=== PATIENT | female | born 1995 | race Caucasian/White ===

== ENCOUNTER 2016-11-17 02:16 | Emergency (ER) | payer OTHER ==
[2016-11-17 02:23] VITALS: TEMP 97.5
[2016-11-17] MEDS ORDERED: ONDANSETRON 4 MG/2 ML VIAL IVP ONE (02:32)
[2016-11-17] MEDS ORDERED: NS 1,000 ML IV ONE (02:32)
--- NOTE | 2016-11-17 02:34 | EDPHY ---
H & P Stated Complaint: ETOH and feels "bad", insulin pump DM Time Seen by Provider: 11/17/16 02:29 HPI/ROS: HPI The patient presents with nausea and vomiting for the last 1 hour. She was drinking heavily with friends tonight, 5-6 shots of alcohol. She then became sick with vomiting which was nonbloody and nonbilious. She denies any abdominal pain but says she generally feels unwell. Her last glucose check was at 9:30 a.m. and it was normal. She last ate at about 7:00 p.m... REVIEW OF SYSTEMS Constitutional: No fever, no chills. Eyes: No discharge. ENT: No sore throat. Cardiovascular: No chest pain, no palpitations. Respiratory: No cough, no shortness of breath. Gastrointestinal: See HPI Genitourinary: No hematuria. Musculoskeletal: No back pain. Skin: No rashes. Neurological: No headache. PMHx: Type 1 diabetes with insulin pump Soc Hx: College student, alcohol use PHYSICAL General Appearance: Alert, no distress Eyes: Pupils equal and round no pallor or injection ENT, Mouth: Mucous membranes moist Respiratory: There are no retractions, lungs are clear to auscultation Cardiovascular: Regular rate and rhythm Gastrointestinal: Abdomen is soft and non-tender, no masses, bowel sounds normal Neurological: A&O, moves all extremities Skin: Warm and dry, no rashes Musculoskeletal: Neck is supple non tender Extremities: symmetrical, full range of motion Psychiatric: Patient is oriented X 3, there is no agitation Source: Patient, Other Exam Limitations: No limitations - Personal History LMP (Females 10-55): 8-14 Days Ago Current Tetanus/Diphtheria Vaccine: Yes Current Tetanus Diphtheria and Acellular Pertussis (TDAP): Yes Tetanus Vaccine Date: 2015 - Medical/Surgical History Hx Asthma: No Hx Chronic Respiratory Disease: No Hx Diabetes: Yes Hx Cardiac Disease: No Hx Renal Disease: No Hx Cirrhosis: No Hx Alcoholism: No Hx HIV/AIDS: No Hx Splenectomy or Spleen Trauma: No Other PMH: DM type I Constitutional: Initial Vital Signs Temperature (C) 36.4 C 11/17/16 02:19 Heart Rate 83 11/17/16 02:19 Respiratory Rate 14 11/17/16 02:19 Blood Pressure 109/62 11/17/16 02:19 O2 Sat (%) 96 11/17/16 02:19 O2 Delivery Mode Room Air Allergies/Adverse Reactions: No Known Allergies Allergy (Unverified 11/17/16 02:19) Home Medications: Medication Instructions Recorded NOVOLOG MIX 70-30 CARTRIDGE 11/17/16 Medical Decision Making ED Course/Re-evaluation: The patient was given a L of IV fluids. Her glucose was checked and was 250. She did not have an anion gap, making DKA unlikely. She was also given Zofran. She was able to tolerate fluids by mouth and was discharged home in good condition. Differential Diagnosis: This is a 21-year-old female with type 1 diabetes, with insulin pump who presents with vomiting after a night of drinking. Differential diagnosis includes alcohol intoxication, DKA, hyperglycemia, hypoglycemia. - Data Points Laboratory Results: Laboratory Results 11/17/16 02:30 11/17/16 02:30 11/17/16 11/17/16 02:30 02:29 WBC 6.97 10^3/uL (3.80-9.50) RBC 4.57 10^6/uL (4.18-5.33) Hgb 14.0 g/dL (12.6-16.3) POC Hgb 14.3 gm/dL (12.3-15.9) Hct 40.9 % (38.0-47.0) POC Hct 42 % (35.5-47.5) MCV 89.5 fL (81.5-99.8) MCH 30.6 pg (27.9-34.1) MCHC 34.2 g/dL (32.4-36.7) RDW 12.8 % (11.5-15.2) Plt Count 333 10^3/uL (150-400) MPV 9.0 fL (8.7-11.7) Neut % (Auto) 75.5 H % (39.3-74.2) Lymph % (Auto) 19.4 % (15.0-45.0) [place] % (Auto) 4.0 L % (4.5-13.0) Eos % (Auto) 0.3 L % (0.6-7.6) Baso % (Auto) 0.4 % (0.3-1.7) Nucleat RBC Rel Count 0.0 % (0.0-0.2) Absolute Neuts (auto) 5.26 10^3/uL (1.70-6.50) Absolute Lymphs (auto) 1.35 10^3/uL (1.00-3.00) Absolute Monos (auto) 0.28 L 10^3/uL (0.30-0.80) Absolute Eos (auto) 0.02 L 10^3/uL (0.03-0.40) Absolute Basos (auto) 0.03 10^3/uL (0.02-0.10) Absolute Nucleated RBC 0.00 10^3/uL (0-0.01) Immature Gran % 0.4 % (0.0-1.1) Immature Gran # 0.03 10^3/uL (0.00-0.10) POC Sodium 139 mEq/L (134-144) Sodium 141 mEq/L (134-144) POC Potassium 3.8 mEq/L (3.3-5.0) Potassium 4.3 mEq/L (3.5-5.2) POC Chloride 102 mEq/L (96-108) Chloride 106 mEq/L (97-110) Carbon Dioxide 21 L mEq/l (22-31) Anion Gap 14 mEq/L (8-16) POC BUN 11 mg/dL (7-23) BUN 12 mg/dL (7-23) Creatinine 0.6 mg/dL (0.6-1.0) POC Creatinine 0.8 mg/dL (0.6-1.2) Estimated GFR > 60 Glucose 250 H mg/dL (70-100) POC Glucose 252 H mg/dL (70-100) Calcium 8.6 mg/dL (8.5-10.4) Total Bilirubin 0.4 mg/dL (0.1-1.4) AST 20 IU/L (14-46) ALT 30 IU/L (9-52) Alkaline Phosphatase 82 IU/L (38-126) Total Protein 6.8 g/dL (6.3-8.2) Albumin 3.7 g/dL (3.5-5.0) Ethyl Alcohol 211 H mg/dL (0-10) Medications Given: Discontinued Medications Sodium Chloride (Ns) 1,000 mls @ 0 mls/hr IV ONCE ONE PRN Reason: Wide Open Stop: 11/17/16 02:33 Last Admin: 11/17/16 02:35 Dose: 1,000 mls Ondansetron HCl (Zofran) 4 mg IVP EDNOW ONE Stop: 11/17/16 02:33 Last Admin: 11/17/16 02:40 Dose: 4 mg Point of Care Test Results: 11/17/16 02:29 POC Sodium 139 POC Potassium 3.8 POC Chloride 102 POC BUN 11 POC Creatinine 0.8 POC Glucose 252 H Departure - Departure Disposition: Home, Routine, Self-Care Clinical Impression: Type 1 diabetes mellitus with hyperglycemia Alcoholic intoxication Qualifiers: Complication of substance-induced condition: with unspecified complication Qualifier Code: (F10.129) Alcohol abuse with intoxication, unspecified Condition: Good Instructions: Alcohol Intoxication (ED) Referrals: [facility] [Outside] - As per Instructions
[2016-11-17 02:38] LABS: % IMMATURE GRANULYOCYTES 0.4 % (0.0-1.1); ABSOLUTE IMMATURE GRANULOCYTES 0.03 10^3/uL (0.00-0.10); ADD DIFF? NO; ADD MORPH? NO; ADD SCAN? NO; ATYPICAL LYMPHOCYTE FLAG 10 (0-99); FRAGMENT RBC FLAG 0 (0-99); HEMATOCRIT 40.9 % (38.0-47.0); LEFT SHIFT FLG 0 (0-99); LIPEMIA HEMOLYSIS FLAG 90 (0-99); MEAN CELL HEMOGLOBIN 30.6 pg (27.9-34.1); MEAN CELL HEMOGLOBIN CONCENTR. 34.2 g/dL (32.4-36.7); MEAN CELL VOLUME 89.5 fL (81.5-99.8); PLATELET CLUMPS FLAG 30 (0-99); PLATELET COUNT 333 10^3/uL (150-400); RED BLOOD CELL COUNT 4.57 10^6/uL (4.18-5.33); RED CELL DISTRIBUTION WIDTH 12.8 % (11.5-15.2)
[2016-11-17 02:48] LABS: ALANINE AMINOTRANSFERASE 30 IU/L (9-52); ALBUMIN 3.7 g/dL (3.5-5.0); ALKALINE PHOSPHATASE 82 IU/L (38-126); ANION GAP 14 mEq/L (8-16); ASPARTATE AMINOTRANSFERASE 20 IU/L (14-46); BILIRUBIN,TOTAL 0.4 mg/dL (0.1-1.4); CALCIUM 8.6 mg/dL (8.5-10.4); CARBON DIOXIDE 21 mEq/l (22-31); CHLORIDE 106 mEq/L (97-110); CREATININE 0.6 mg/dL (0.6-1.0); ETHANOL SERUM 211 mg/dL (0-10); GLOMERULAR FILTRATION RATE > 60; GLUCOSE 250 mg/dL (70-100); POTASSIUM 4.3 mEq/L (3.5-5.2); SODIUM 141 mEq/L (134-144); TOTAL PROTEIN 6.8 g/dL (6.3-8.2)
[2016-11-17 04:10] VITALS: BP 112/68; PULSE 69; RESP 16; O2SAT 95
== END 2016-11-17 04:18 | disposition home or self-care (01) ==
DX: E10.65 Type 1 diabetes mellitus with hyperglycemia (principal); F10.129 Alcohol abuse with intoxication, unspecified
CPT/HCPCS: 82947-QW; 96374; G0480; J2405